=== PATIENT | female | born 1985 | race Caucasian/White ===

== ENCOUNTER 2017-02-02 09:00 | Emergency (ER) | payer OTHER ==
[~2017-02-02] VITALS: Ht 165.1 cm; Wt 66.8 kg
[2017-02-02 10:35] LABS: HEMATOCRIT 44.7 % (36.0-46.0); MCH 31.5 PG (29.0-34.0); MCHC 33.6 G/DL (30.0-36.0); MCV 93.9 FL (83-99); MEAN PLAT.VOLUME 9.8 uM^3 (9.5-12.4); PLATELET COUNT 284 K/uL (156-360); RBC DIS.WIDTH-CV 12.2 % (11.8-14.6); RBC DIS.WIDTH-SD 42.5 % (39-53); RED BLOOD COUNT 4.76 M/uL (3.80-5.20); WHITE BLOOD COUNT 7.5 K/uL (4.1-10.2)
[2017-02-02 11:05] LABS: CHLORIDE 105 mEq/L (99-109); POTASSIUM 3.9 mEq/L (3.7-5.4); SODIUM 140 mEq/L (136-147)
[2017-02-02 11:07] LABS: GLUCOSE 83 mg/dL (70-99)
[2017-02-02 11:09] LABS: ANION GAP 12 MEQ/L (2-14)
[2017-02-02 11:12] LABS: UREA NITROGEN (BUN) 11 mg/dL (9-23)
[2017-02-02] MEDS ORDERED: DIFLUCAN150 MG PO (11:12)
[2017-02-02] MEDS ORDERED: AUGMENTIN875 MG PO (11:12)
[2017-02-02 11:13] LABS: GFR ESTIMATE (CALCULATED) > 59 mL/min/
[2017-02-02 11:45] VITALS: BP 139/76
== END 2017-02-02 11:45 | disposition home or self-care (01) ==
LOC: EME 09:00 → EXP 09:00
PROVIDERS: Emergency Medicine
PROC: 3E0234Z Introduction of Serum, Toxoid and Vaccine into Muscle, Percutaneous Approach (ICD-10-PCS; principal; 2017-02-02)
DX: S60.512A Abrasion of left hand, initial encounter (principal); S60.511A Abrasion of right hand, initial encounter; S50.812A Abrasion of left forearm, initial encounter; S50.811A Abrasion of right forearm, initial encounter; S90.812A Abrasion, left foot, initial encounter; S90.811A Abrasion, right foot, initial encounter; W55.03XA Scratched by cat, initial encounter; B37.0 Candidal stomatitis; R21 Rash and other nonspecific skin eruption; Z23 Encounter for immunization; F17.200 Nicotine dependence, unspecified, uncomplicated
CPT/HCPCS: 80048; 85027; 99281; 99284

== ENCOUNTER 2017-10-03 21:25 | Emergency (ER) | payer OTHER ==
[~2017-10-03] VITALS: Ht 165.1 cm; Wt 65.0 kg
[~2017-10-03 21:25] MED LIST: AUGMENTIN875 MG PO; DIFLUCAN150 MG PO
[2017-10-03 22:00] LABS: HEMOGLOBIN 13.7 G/DL (11.9-15.5); MCH 32.9 PG (29.0-34.0); MCHC 34.3 G/DL (30.0-36.0); MCV 95.9 FL (83-99); PLATELET COUNT 248 K/uL (156-360); RBC DIS.WIDTH-CV 12.4 % (11.8-14.6); RBC DIS.WIDTH-SD 43.5 % (39-53); RED BLOOD COUNT 4.17 M/uL (3.80-5.20); WHITE BLOOD COUNT 11.2 K/uL (4.1-10.2)
[2017-10-03 22:12] LABS: CHLORIDE 107 mEq/L (99-109); POTASSIUM 3.9 mEq/L (3.7-5.4); SODIUM 142 mEq/L (136-147)
[2017-10-03 22:14] LABS: GLUCOSE 107 mg/dL (70-99)
[2017-10-03 22:18] LABS: CREATININE 0.8 mg/dL (0.6-1.3); GFR ESTIMATE (CALCULATED) > 59 mL/min/
[2017-10-03 22:19] LABS: UREA NITROGEN (BUN) 11 mg/dL (9-23)
[2017-10-04] MEDS ORDERED: KEFLEX750 MG PO (00:02)
[2017-10-04 00:33] VITALS: BP 128/58
== END 2017-10-04 00:33 | disposition home or self-care (01) ==
LOC: EME 21:25
DX: L03.116 Cellulitis of left lower limb (principal)
CPT/HCPCS: 80048; 85027; 99281; 99284